=== PATIENT | female | born 1980 | race American Indian/Alaskan Native ===

== ENCOUNTER 2017-03-03 18:41 | Emergency (ER) | payer MEDICAID ==
[2017-03-03] MEDS ORDERED: ZESTRIL ONE (19:45)
[2017-03-03] MEDS ORDERED: ZESTRIL PO ONE (19:45)
--- NOTE | 2017-03-03 22:02 | Emergency Department Report ---
HPI - General Chief Complaint: Back Pain/Injury Time Seen by Provider: 03/03/17 21:47 - HPI HPI: Patient is a 37-year-old female with a history of hypertension states she is round out of her meds for about a year due to insurance issues. Patient states she used to take lisinopril 20 mg per day. Patient is here complaining of lower back pain for the past 3 weeks. Patient states pain is intermittent, throbbing, aching, 6 out of 10 intensity nature. 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 He states earlier today she did experience some generalized, throbbing type, aching headache. Denies fevers/chills/nausea/vomiting/abdominal pain/chest pains or shortness of breath/dizziness/blurry vision. ED Past Medical Hx - Past Medical History Hx Hypertension: Yes Additional medical history: PCOS - Surgical History Hx Cholecystectomy: Yes Additional Surgical History: tonsillectomy. tubal ligation - Social History Smoking Status: Former Smoker Substance Use Type: None - Medications Home Medications: Home Medications Medication Instructions Recorded Confirmed Last Taken Type Hydrochlorothiazide 25 mg PO QDAY 09/20/13 09/20/13 09/20/13 10:00 History Ibuprofen [Motrin] 800 mg PO Q8H PRN 09/20/13 09/20/13 09/17/13 08:00 History Lisinopril/Hydrochlorothiazide 1 each PO QDAY #30 tablet 09/20/13 Unknown Rx [Zestoretic 20-25 mg] medroxyPROGESTERone ACETATE 2.5 mg PO QDAY 09/20/13 09/20/13 09/17/13 08:00 History [Provera] traMADol [Ultram 50 MG tab] 50 mg PO Q6H PRN #12 tablet 09/20/13 Unknown Rx Famotidine [Pepcid] 20 mg PO BID #60 tablet 09/23/13 Unknown Rx Hyoscyamine Subl [Levsin Sl] 0.125 mg PO Q6HR PRN #20 tablet 09/23/13 Unknown Rx Promethazine [Phenergan] 25 mg PO Q6H PRN #20 tablet 09/23/13 Unknown Rx Sulfamethoxazole/Trimethoprim 1 each PO BID #14 tablet 09/23/13 Unknown Rx [Bactrim Ds] HYDROcodone/APAP 10-325 [[place] 1 each PO Q6HR PRN #20 tablet 04/02/14 Unknown Rx 10-325 mg TAB] Methocarbamol [Robaxin] 750 mg PO Q8H PRN #21 tablet 04/02/14 Unknown Rx Sulfamethoxazole/Trimethoprim 1 each PO BID #14 tablet 07/01/15 Unknown Rx [Bactrim DS TAB] Fluconazole [Diflucan TAB] 150 mg PO ONCE #1 tablet 07/10/15 Unknown Rx predniSONE [Deltasone] 20 mg PO QDAY #3 tab 07/10/15 Unknown Rx Famotidine [Pepcid] 20 mg PO BID #20 tablet 07/17/15 Unknown Rx Loratadine [Claritin] 10 mg PO DAILY #30 tablet 07/17/15 Unknown Rx Prednisone [predniSONE 10 mg 10 mg PO .TAPER #1 tab.ds.pk 07/17/15 Unknown Rx (6-Day Pack, 21 Tabs)] hydrOXYzine HCL [Atarax] 25 mg PO Q6HR PRN #30 tablet 07/17/15 Unknown Rx Ciprofloxacin HCl [Ciprofloxacin 500 mg PO Q12H #6 tab 03/03/17 Unknown Rx TAB] Cyclobenzaprine [Flexeril] 10 mg PO QHS PRN #24 tablet 03/03/17 Unknown Rx Lisinopril/Hydrochlorothiazide 1 tab PO QDAY #40 tab 03/03/17 Unknown Rx [Zestoretic 20-12.5 mg] Naproxen [Naprosyn] 500 mg PO BID #30 tablet 03/03/17 Unknown Rx ED Review of Systems ROS: Stated complaint: BACK PAIN Other details as noted in HPI Constitutional: denies: chills, fever Eyes: denies: eye pain, eye discharge, vision change ENT: denies: ear pain, throat pain Respiratory: denies: cough, shortness of breath, wheezing Cardiovascular: denies: chest pain, palpitations Endocrine: no symptoms reported Gastrointestinal: denies: abdominal pain, nausea, vomiting, diarrhea, constipation Genitourinary: denies: urgency, dysuria, frequency, hematuria, discharge Musculoskeletal: denies: back pain, joint swelling, arthralgia Skin: denies: rash, lesions Neurological: denies: headache, weakness, paresthesias Psychiatric: denies: anxiety, depression Hematological/Lymphatic: denies: easy bleeding, easy bruising Physical Exam - Physical Exam Vital Signs: Vital Signs 03/03/17 19:49 Temperature 98.7 F Pulse Rate 98 H Respiratory 20 Rate Blood Pressure 195/96 O2 Sat by Pulse 100 Oximetry Physical Exam: GENERAL: Alert and oriented x3, no apparent distress, Normal Gait, atraumatic. HEAD: Head is normocephalic and a-traumatic. EYES: Extra ocular muscles are intact. Pupils are equal, round, and reactive to light and accommodation. MOUTH:Mouth is well hydrated and without lesions. Tonsils nonerythematous or swollen, Uvula midline, Tongue not elevated. Mucous membranes are moist. Posterior pharynx clear, no exudate or lesions. Patent airways. NECK: Supple. Non edematous, No carotid bruits. No lymphadenopathy or thyromegaly. No C-spine tenderness LUNGS: Symetrical with respiration, No wheezing, no rales or crackles, CTAB. HEART: S1, S2 present, regular rate and rhythm without murmur, no rubs, no gallops. Non tender to palpation ABDOMEN: No organomegaly was noted,Positive bowel sounds, soft, and non- distended. . Nontender to palpation on all Quadrants, bilat CVA tenderness. NEUROLOGIC: The patient is cooperative with no focal neurologic deficits. Cranial nerves II through XII are grossly intact. Normal speech. SKIN: Warm and dry, No lesions, No ulceration or induration present. ED Course Vital Signs 03/03/17 19:49 Temperature 98.7 F Pulse Rate 98 H Respiratory 20 Rate Blood Pressure 195/96 O2 Sat by Pulse 100 Oximetry ED Medical Decision Making - Lab Data Result diagrams: 03/03/17 22:18 03/03/17 22:18 - Medical Decision Making 37-year-old female presents with uncontrolled hypertension/UTI/myalgia ED course: CBC, CMP, urinalysis, urine tests ordered. All labs within normal limits otherwise urinalysis shows mild urinary tract infection Discussed this results with the patient. Discussed the patient follow up with her primary care physician for blood pressure control. Discussed the patient rest and appropriate lifting techniques and braces for work Patient is a alert and oriented 3 she understands instructions given since she will follow-up. She has received her lisinopril dose as well as Compazine to help with the headache. Patient states she feels much better. His tones are normal,she is in no acute distress Critical care attestation.: If time is entered above; I have spent that time in minutes in the direct care of this critically ill patient, excluding procedure time. ED Disposition Clinical Impression: Strain of muscle, fascia and tendon of lower back, initial encounter, Uncontrolled hypertension UTI (urinary tract infection) Qualifiers: Urinary tract infection type: acute cystitis Hematuria presence: without hematuria Qualified Code(s): N30.00 - Acute cystitis without hematuria Disposition: TO HOME OR SELFCARE Is pt being admited?: No Does the pt Need Aspirin: No Condition: Stable Instructions: Muscle Strain (ED), Urinary Tract Infection in Women (ED), Chronic Hypertension (ED), Trigger Point Pain (ED), Musculoskeletal Pain (ED), Hypertension (ED) Prescriptions: Cyclobenzaprine [Flexeril] 10 mg PO QHS PRN #24 tablet PRN Reason: Muscle Spasm Ciprofloxacin HCl [Ciprofloxacin TAB] 500 mg PO Q12H #6 tab Lisinopril/Hydrochlorothiazide [Zestoretic 20-12.5 mg] 1 tab PO QDAY #40 tab Naproxen [Naprosyn] 500 mg PO BID #30 tablet Referrals: JESSIKA LEE MD [Primary Care Provider] - 3-5 Days Forms: Work/School Release Form(ED) Time of Disposition: 23:08
[2017-03-03] MEDS ORDERED: COMPAZINE PO ONE (22:04)
[2017-03-03] MEDS ORDERED: FLEXERIL PO ONE (22:05)
[2017-03-03 22:23] LABS: Bilirubin,Urine NEG (Negative); Blood,Urine LG (Negative); Ketones,Urine TR mg/dL (Negative); Leukocyte Esterase,Urine TR (Negative); Mucus,Urine 3+ /HPF; Nitrite,Urine NEG (Negative); Urobilinogen,Urine < 2.0 mg/dL (<2.0)
[2017-03-03 22:37] LABS: Basophils % (Auto) 0.4 % (0.0-1.8); Eosinophils % (Auto) 1.2 % (0.0-4.3); Hematocrit 34.9 % (30.3-42.9); Hemoglobin 10.8 gm/dl (10.1-14.3); Mean Corpuscular HGB Conc 31 % (30-34); Mean Corpuscular Volume 78 fl (79-97); Platelet Count 273 K/mm3 (140-440); Red Blood Count 4.45 M/mm3 (3.65-5.03); Red Cell Distribution Width 15.5 % (13.2-15.2); White Blood Count 5.6 K/mm3 (4.5-11.0)
[2017-03-03 22:38] LABS: Mean Corpuscular Hemoglobin 24 pg (28-32)
[2017-03-03 22:53] LABS: Alanine Aminotransferase 19 units/L (7-56); Albumin 4.2 g/dL (3.9-5); Albumin/Globulin Ratio 1.4 %; Alkaline Phosphatase 75 units/L (35-129); BUN/Creatinine Ratio 12.22; Blood Urea Nitrogen 11 mg/dL (7-17); Calcium 9.1 mg/dL (8.4-10.2); Carbon Dioxide 22 mmol/L (22-30); Glucose 85 mg/dL (65-100); Total Protein 7.2 g/dL (6.3-8.2)
[2017-03-03 22:54] LABS: Anion Gap 20 mmol/L; Chloride 101.3 mmol/L (98-107); Potassium 3.8 mmol/L (3.6-5.0); Sodium 139 mmol/L (137-145)
[2017-03-03 23:16] VITALS: BP 124/84
== END 2017-03-03 23:38 | disposition home or self-care (01) ==
LOC: ED 18:41
DX: S39.012A Strain of muscle, fascia and tendon of lower back, initial encounter (principal); I10 Essential (primary) hypertension; N30.00 Acute cystitis without hematuria; E28.2 Polycystic ovarian syndrome; Z88.8 Allergy status to other drugs, medicaments and biological substances; Z88.2 Allergy status to sulfonamides; Z87.891 Personal history of nicotine dependence; X50.1XXA Overexertion from prolonged static or awkward postures, initial encounter; Y93.89 Activity, other specified; Y99.8 Other external cause status; Y92.89 Other specified places as the place of occurrence of the external cause
CPT/HCPCS: 36415; 80053; 81001; 81025; 84703; 85025; 99283; Q0164

== ENCOUNTER 2017-03-06 13:15 | Emergency (ER) | payer MEDICAID ==
[2017-03-06 13:28] VITALS: BP 125/64
[2017-03-06] MEDS ORDERED: TORADOL IM ONE (14:35)
--- NOTE | 2017-03-06 14:40 | Emergency Department Report ---
ED Back Pain/Injury HPI - General Chief Complaint: Back Pain/Injury Stated Complaint: BACK PAIN/BODY ACHES Time Seen by Provider: 03/06/17 14:06 Source: patient Limitations: No Limitations - History of Present Illness Complaint: back pain Onset/Timin -: year(s) Similar Symptoms Previously: Yes Place: work Radiation: right leg Severity: moderate Severity scale (0 -10): 4 Quality: burning, sharp Consistency: constant Improves With: none Worsens With: movement, other (bending twisting ) Context: while lifting, turning/twisting, bending Associated Symptoms: denies: weakness, chest pain, numbness, cough, difficulty urinating, diaphoresis, incontinence, fever/chills, constipation, headaches, abdominal pain, loss of appetite, malaise, nausea/vomiting, rash, seizure, shortness of breath, syncope - Related Data Home Medications Medication Instructions Recorded Confirmed Last Taken Hydrochlorothiazide 25 mg PO QDAY 09/20/13 09/20/13 09/20/13 10:00 Ibuprofen [Motrin] 800 mg PO Q8H PRN 09/20/13 09/20/13 09/17/13 08:00 medroxyPROGESTERone ACETATE 2.5 mg PO QDAY 09/20/13 09/20/13 09/17/13 08:00 [Provera] Previous Rx's Medication Instructions Recorded Last Taken Type Lisinopril/Hydrochlorothiazide 1 each PO QDAY #30 tablet 09/20/13 Unknown Rx [Zestoretic 20-25 mg] traMADol [Ultram 50 MG tab] 50 mg PO Q6H PRN #12 tablet 09/20/13 Unknown Rx Famotidine [Pepcid] 20 mg PO BID #60 tablet 09/23/13 Unknown Rx Hyoscyamine Subl [Levsin Sl] 0.125 mg PO Q6HR PRN #20 tablet 09/23/13 Unknown Rx Promethazine [Phenergan] 25 mg PO Q6H PRN #20 tablet 09/23/13 Unknown Rx Sulfamethoxazole/Trimethoprim 1 each PO BID #14 tablet 09/23/13 Unknown Rx [Bactrim Ds] HYDROcodone/APAP 10-325 [[place] 1 each PO Q6HR PRN #20 tablet 04/02/14 Unknown Rx 10-325 mg TAB] Methocarbamol [Robaxin] 750 mg PO Q8H PRN #21 tablet 04/02/14 Unknown Rx Sulfamethoxazole/Trimethoprim 1 each PO BID #14 tablet 07/01/15 Unknown Rx [Bactrim DS TAB] Fluconazole [Diflucan TAB] 150 mg PO ONCE #1 tablet 07/10/15 Unknown Rx predniSONE [Deltasone] 20 mg PO QDAY #3 tab 07/10/15 Unknown Rx Famotidine [Pepcid] 20 mg PO BID #20 tablet 07/17/15 Unknown Rx Loratadine [Claritin] 10 mg PO DAILY #30 tablet 07/17/15 Unknown Rx Prednisone [predniSONE 10 mg 10 mg PO .TAPER #1 tab.ds.pk 07/17/15 Unknown Rx (6-Day Pack, 21 Tabs)] hydrOXYzine HCL [Atarax] 25 mg PO Q6HR PRN #30 tablet 07/17/15 Unknown Rx Ciprofloxacin HCl [Ciprofloxacin 500 mg PO Q12H #6 tab 03/03/17 Unknown Rx TAB] Cyclobenzaprine [Flexeril] 10 mg PO QHS PRN #24 tablet 03/03/17 Unknown Rx Lisinopril/Hydrochlorothiazide 1 tab PO QDAY #40 tab 03/03/17 Unknown Rx [Zestoretic 20-12.5 mg] Naproxen [Naprosyn] 500 mg PO BID #30 tablet 03/03/17 Unknown Rx Capsaicin 42.5 gm TP BID PRN #1 tube 03/06/17 Unknown Rx Allergies Allergy/AdvReac Type Severity Reaction Status Date / Time sulfamethoxazole Allergy Rash Verified 07/10/15 09:09 [From Bactrim] trimethoprim [From Bactrim] Allergy Rash Verified 07/10/15 09:09 ED Review of Systems ROS: Stated complaint: BACK PAIN/BODY ACHES Other details as noted in HPI Constitutional: denies: chills, fever Eyes: denies: eye pain, eye discharge, vision change ENT: denies: ear pain, throat pain Respiratory: denies: cough, shortness of breath, wheezing Cardiovascular: denies: chest pain, palpitations Endocrine: no symptoms reported Gastrointestinal: denies: abdominal pain, nausea, diarrhea Genitourinary: denies: urgency, dysuria, discharge Musculoskeletal: back pain, myalgia, other. denies: joint swelling, arthralgia Skin: denies: rash, lesions Neurological: denies: headache, weakness, numbness, paresthesias, confusion, abnormal gait, vertigo Psychiatric: denies: anxiety, depression Hematological/Lymphatic: denies: easy bleeding, easy bruising ED Past Medical Hx - Past Medical History Previous Medical History?: Yes Hx Hypertension: Yes Additional medical history: PCOS - Surgical History Hx Cholecystectomy: Yes Additional Surgical History: tonsillectomy. tubal ligation - Social History Smoking Status: Never Smoker Substance Use Type: None - Medications Home Medications: Home Medications Medication Instructions Recorded Confirmed Last Taken Type Hydrochlorothiazide 25 mg PO QDAY 09/20/13 09/20/13 09/20/13 10:00 History Ibuprofen [Motrin] 800 mg PO Q8H PRN 09/20/13 09/20/13 09/17/13 08:00 History Lisinopril/Hydrochlorothiazide 1 each PO QDAY #30 tablet 09/20/13 Unknown Rx [Zestoretic 20-25 mg] medroxyPROGESTERone ACETATE 2.5 mg PO QDAY 09/20/13 09/20/13 09/17/13 08:00 History [Provera] traMADol [Ultram 50 MG tab] 50 mg PO Q6H PRN #12 tablet 09/20/13 Unknown Rx Famotidine [Pepcid] 20 mg PO BID #60 tablet 09/23/13 Unknown Rx Hyoscyamine Subl [Levsin Sl] 0.125 mg PO Q6HR PRN #20 tablet 09/23/13 Unknown Rx Promethazine [Phenergan] 25 mg PO Q6H PRN #20 tablet 09/23/13 Unknown Rx Sulfamethoxazole/Trimethoprim 1 each PO BID #14 tablet 09/23/13 Unknown Rx [Bactrim Ds] HYDROcodone/APAP 10-325 [[place] 1 each PO Q6HR PRN #20 tablet 04/02/14 Unknown Rx 10-325 mg TAB] Methocarbamol [Robaxin] 750 mg PO Q8H PRN #21 tablet 04/02/14 Unknown Rx Sulfamethoxazole/Trimethoprim 1 each PO BID #14 tablet 07/01/15 Unknown Rx [Bactrim DS TAB] Fluconazole [Diflucan TAB] 150 mg PO ONCE #1 tablet 07/10/15 Unknown Rx predniSONE [Deltasone] 20 mg PO QDAY #3 tab 11/02/15 Unknown Rx Famotidine [Pepcid] 20 mg PO BID #20 tablet 07/17/15 Unknown Rx Loratadine [Claritin] 10 mg PO DAILY #30 tablet 07/17/15 Unknown Rx Prednisone [predniSONE 10 mg 10 mg PO .TAPER #1 tab.ds.pk 07/17/15 Unknown Rx (6-Day Pack, 21 Tabs)] hydrOXYzine HCL [Atarax] 25 mg PO Q6HR PRN #30 tablet 07/17/15 Unknown Rx Ciprofloxacin HCl [Ciprofloxacin 500 mg PO Q12H #6 tab 03/03/17 Unknown Rx TAB] Cyclobenzaprine [Flexeril] 10 mg PO QHS PRN #24 tablet 03/03/17 Unknown Rx Lisinopril/Hydrochlorothiazide 1 tab PO QDAY #40 tab 03/03/17 Unknown Rx [Zestoretic 20-12.5 mg] Naproxen [Naprosyn] 500 mg PO BID #30 tablet 03/03/17 Unknown Rx Capsaicin 42.5 gm TP BID PRN #1 tube 03/06/17 Unknown Rx ED Physical Exam - General Limitations: No Limitations General appearance: alert, in no apparent distress - Head Head exam: Present: atraumatic, normocephalic - Eye Eye exam: Present: normal appearance - ENT ENT exam: Present: mucous membranes moist - Neck Neck exam: Present: normal inspection - Respiratory Respiratory exam: Present: normal lung sounds bilaterally. Absent: respiratory distress - Cardiovascular Cardiovascular Exam: Present: regular rate, normal rhythm. Absent: systolic murmur, diastolic murmur, rubs, gallop - GI/Abdominal GI/Abdominal exam: Present: soft, normal bowel sounds - Rectal Rectal exam: Present: deferred - Extremities Exam Extremities exam: Present: normal inspection, full ROM. Absent: tenderness - Back Exam Back exam: Present: normal inspection, tenderness, muscle spasm. Absent: CVA tenderness (R), CVA tenderness (L), paraspinal tenderness, vertebral tenderness , rash noted - Expanded Back Exam Expanded Back exam: Present: intact bulbocavernosus reflex. Absent: saddle anesthesia Back exam: Sciatic Notch Tenderness: Right, Positive Straight Leg Raise: Right, Negative Straight Leg Raising: Left - Neurological Exam Neurological exam: Present: alert, oriented X3, CN II-XII intact, normal gait, reflexes normal. Absent: motor sensory deficit - Expanded Neurological Exam Expanded Speech: Present: fluid speech Cerebellar function: Finger to Nose: Normal, Heel to Deras: Normal, Romberg: Normal Upper motor neuron: Prabhakar Neglect: Normal, Pronator Drift: Normal, Babinski Sign : Normal, Sensory Extinction: Normal Sensory exam: Upper Extremity Light Touch: Normal, Upper Extremity Pin Prick: Normal, Upper Extremity Temperature: Normal, UE 2 Point Discrimination: Normal, Lower Extremity Light Touch: Normal, Lower Extremity Pin Prick: Normal, Lower Extremity Temperature: Normal, LE 2 Point Discrimination: Normal Motor strength exam: RUE: 5, LUE: 5, RLE: 5 DTR: bicep (R): 2+, bicep (L): 2+, tricep (R): 2+, tricep (L): 2+, knee (R): 2+ , knee (L): 2+, ankle (R): 2+, ankle (L): 2+ Best Eye Response ([place]): (4) open spontaneously Best Motor Response ([place]): (6) obeys commands Best Verbal Response ([place]): (5) oriented [place] Total: 15 - Psychiatric Psychiatric exam: Present: normal affect, normal mood - Skin Skin exam: Present: warm, dry, intact, normal color. Absent: rash ED Course Vital Signs 03/06/17 13:24 Temperature 97.6 F Pulse Rate 102 H Respiratory 18 Rate Blood Pressure 125/64 O2 Sat by Pulse 100 Oximetry ED Medical Decision Making - Medical Decision Making pt is as 37 y/o aaf with hx chronic low back pain who present for acute exacerbation including this ed 4 days ago as "I twisted my back again at work , I have to lift and twist and it aggravates my back and I have to work" todate patient has not follow up with primary care or orthopedics for management of pain, exam: no posterior vertebral point tenderness no paraspinus muscle tenderness mild sciatic notch tenderness there is no weakness no paresthesia no numbness pos straight leg right there is no loss or decrease in bowel or bladder function pt is ambulatory gait is steady pt with nad at this time pain improved with toradol IM, will refer to orthopedic Dr. Sanches pt will follow up with same. pt verbalizled agreement and understanding with discharge plan. Critical care attestation.: If time is entered above; I have spent that time in minutes in the direct care of this critically ill patient, excluding procedure time. ED Disposition Clinical Impression: Low back strain Qualifiers: Encounter type: sequela Qualified Code(s): S39.012S - Strain of muscle, fascia and tendon of lower back, sequela Disposition: TO HOME OR SELFCARE Is pt being admited?: No Does the pt Need Aspirin: No Condition: Good Instructions: Low Back Strain (ED) Prescriptions: Capsaicin 42.5 gm TP BID PRN #1 tube PRN Reason: Pain Referrals: PRIMARY CAREMD [Primary Care Provider] - 3-5 Days LIYAH SANCHES MD [Staff Physician] - 3-5 Days Forms: Work/School Release Form(ED) Time of Disposition: 14:50
== END 2017-03-06 14:59 | disposition home or self-care (01) ==
LOC: ED 13:15
DX: S39.012S Strain of muscle, fascia and tendon of lower back, sequela (principal); I10 Essential (primary) hypertension; Z88.2 Allergy status to sulfonamides; Z88.8 Allergy status to other drugs, medicaments and biological substances; X50.1XXA Overexertion from prolonged static or awkward postures, initial encounter; Y93.89 Activity, other specified; Y99.9 Unspecified external cause status; Y92.89 Other specified places as the place of occurrence of the external cause
CPT/HCPCS: 96372; 99282; J1885

== ENCOUNTER 2017-04-15 07:46 | Emergency (ER) | payer MEDICAID, OTHER ==
[2017-04-15 07:57] VITALS: BP 160/95
[2017-04-15] MEDS ORDERED: FLEXERIL PO ONE (09:42)
[2017-04-15] MEDS ORDERED: TORADOL IM ONE (09:42)
--- NOTE | 2017-04-15 19:04 | Emergency Department Report ---
Entered by CATERINA ESPINO, acting as scribe for CB COPE PA. ED Extremity Problem HPI - General Chief complaint: Extremity Injury, Lower Stated complaint: BOTH KNEE PAIN Time Seen by Provider: 04/15/17 09:12 Source: patient Mode of arrival: Ambulatory Limitations: No Limitations - History of Present Illness Initial comments: 37 y/o female with a PMHx of HTN and PCOS presents to the ED c/o bilateral knee pain that began 2 weeks ago. Rates pain a 10/10 in severity, which she describes as shooting and stabbing in quality. Aggravated with movement and walking up/down stairs, and alleviated with immobilization, heat, and ice. Denies any bilateral knee injury/trauma, numbness, tingling, fever, chills, chest pain, SOB, nausea, vomiting, and headache. Denies radiation of pain. Took OTC medication with no relief. Notes that she walks up and down stairs throughout the day at work. Allergic to sulfamethoxazol and trimethoprim. MD Complaint: extremity pain (bilateral knee) Onset/Timin -: week(s) Location: bilateral lower extremity, knee -: Yes arthralgia (bilateral knee pain) Radiation: none Severity scale (0 -10): 10 Quality: stabbing, other (shooting) Consistency: constant Improves with: cold therapy, immobilization, rest, other (heat) Worsens with: weight bearing, walking Associated Symptoms: denies other symptoms, arthralgias (bilateral knee pain). denies: chest pain, shortness of breath, fever, myalgias, rash - Related Data Home Medications Medication Instructions Recorded Confirmed Last Taken Hydrochlorothiazide 25 mg PO QDAY 09/20/13 09/20/13 09/20/13 10:00 medroxyPROGESTERone ACETATE 2.5 mg PO QDAY 09/20/13 09/20/13 09/17/13 08:00 [Provera] Previous Rx's Medication Instructions Recorded Last Taken Type Lisinopril/Hydrochlorothiazide 1 each PO QDAY #30 tablet 09/20/13 Unknown Rx [Zestoretic 20-25 mg] traMADol [Ultram 50 MG tab] 50 mg PO Q6H PRN #12 tablet 09/20/13 Unknown Rx Famotidine [Pepcid] 20 mg PO BID #60 tablet 09/23/13 Unknown Rx Hyoscyamine Subl [Levsin Sl] 0.125 mg PO Q6HR PRN #20 tablet 09/23/13 Unknown Rx Promethazine [Phenergan] 25 mg PO Q6H PRN #20 tablet 09/23/13 Unknown Rx Sulfamethoxazole/Trimethoprim 1 each PO BID #14 tablet 09/23/13 Unknown Rx [Bactrim Ds] HYDROcodone/APAP 10-325 [[place] 1 each PO Q6HR PRN #20 tablet 04/02/14 Unknown Rx 10-325 mg TAB] Methocarbamol [Robaxin] 750 mg PO Q8H PRN #21 tablet 04/02/14 Unknown Rx Sulfamethoxazole/Trimethoprim 1 each PO BID #14 tablet 07/01/15 Unknown Rx [Bactrim DS TAB] Fluconazole [Diflucan TAB] 150 mg PO ONCE #1 tablet 07/10/15 Unknown Rx predniSONE [Deltasone] 20 mg PO QDAY #3 tab 07/10/15 Unknown Rx Famotidine [Pepcid] 20 mg PO BID #20 tablet 07/17/15 Unknown Rx Loratadine [Claritin] 10 mg PO DAILY #30 tablet 07/17/15 Unknown Rx Prednisone [predniSONE 10 mg 10 mg PO .TAPER #1 tab.ds.pk 07/17/15 Unknown Rx (6-Day Pack, 21 Tabs)] hydrOXYzine HCL [Atarax] 25 mg PO Q6HR PRN #30 tablet 07/17/15 Unknown Rx Ciprofloxacin HCl [Ciprofloxacin 500 mg PO Q12H #6 tab 03/03/17 Unknown Rx TAB] Lisinopril/Hydrochlorothiazide 1 tab PO QDAY #40 tab 03/03/17 Unknown Rx [Zestoretic 20-12.5 mg] Naproxen [Naprosyn] 500 mg PO BID #30 tablet 03/03/17 Unknown Rx Capsaicin 42.5 gm TP BID PRN #1 tube 03/06/17 Unknown Rx Cyclobenzaprine [Flexeril 10 MG 10 mg PO QHS PRN #24 tablet 04/15/17 Unknown Rx TAB] Ibuprofen [Motrin 800 MG tab] 800 mg PO Q8H PRN #30 tablet 04/15/17 Unknown Rx Allergies Allergy/AdvReac Type Severity Reaction Status Date / Time sulfamethoxazole Allergy Rash Verified 07/10/15 09:09 [From Bactrim] trimethoprim [From Bactrim] Allergy Rash Verified 07/10/15 09:09 ED Review of Systems ROS: Stated complaint: BOTH KNEE PAIN Other details as noted in HPI Comment: All other systems reviewed and negative Constitutional: denies: chills, diaphoresis, fever, weakness Eyes: denies: eye pain, eye discharge, vision change ENT: denies: ear pain, throat pain Respiratory: denies: cough, orthopnea, shortness of breath, SOB with exertion, SOB at rest, stridor, wheezing Cardiovascular: denies: chest pain, palpitations, dyspnea on exertion, orthopnea , edema, syncope, paroxysmal nocturnal dyspnea Endocrine: no symptoms reported Gastrointestinal: denies: abdominal pain, nausea, vomiting, diarrhea Musculoskeletal: arthralgia (bilateral knee pain). denies: back pain, joint swelling Skin: denies: rash, lesions Neurological: denies: headache, weakness, numbness, paresthesias Psychiatric: denies: anxiety, depression Hematological/Lymphatic: denies: easy bleeding, easy bruising ED Past Medical Hx - Past Medical History Previous Medical History?: Yes Hx Hypertension: Yes Additional medical history: PCOS - Surgical History Past Surgical History?: Yes Hx Cholecystectomy: Yes Additional Surgical History: tonsillectomy. tubal ligation - Family History Family history: no significant - Social History Smoking Status: Former Smoker Substance Use Type: Non Opiate Pain, Prescribed - Medications Home Medications: Home Medications Medication Instructions Recorded Confirmed Last Taken Type Hydrochlorothiazide 25 mg PO QDAY 09/20/13 09/20/13 09/20/13 10:00 History Lisinopril/Hydrochlorothiazide 1 each PO QDAY #30 tablet 09/20/13 Unknown Rx [Zestoretic 20-25 mg] medroxyPROGESTERone ACETATE 2.5 mg PO QDAY 09/20/13 09/20/13 09/17/13 08:00 History [Provera] traMADol [Ultram 50 MG tab] 50 mg PO Q6H PRN #12 tablet 09/20/13 Unknown Rx Famotidine [Pepcid] 20 mg PO BID #60 tablet 09/23/13 Unknown Rx Hyoscyamine Subl [Levsin Sl] 0.125 mg PO Q6HR PRN #20 tablet 09/23/13 Unknown Rx Promethazine [Phenergan] 25 mg PO Q6H PRN #20 tablet 09/23/13 Unknown Rx Sulfamethoxazole/Trimethoprim 1 each PO BID #14 tablet 09/23/13 Unknown Rx [Bactrim Ds] HYDROcodone/APAP 10-325 [[place] 1 each PO Q6HR PRN #20 tablet 04/02/14 Unknown Rx 10-325 mg TAB] Methocarbamol [Robaxin] 750 mg PO Q8H PRN #21 tablet 04/02/14 Unknown Rx Sulfamethoxazole/Trimethoprim 1 each PO BID #14 tablet 07/01/15 Unknown Rx [Bactrim DS TAB] Fluconazole [Diflucan TAB] 150 mg PO ONCE #1 tablet 07/10/15 Unknown Rx predniSONE [Deltasone] 20 mg PO QDAY #3 tab 07/10/15 Unknown Rx Famotidine [Pepcid] 20 mg PO BID #20 tablet 07/17/15 Unknown Rx Loratadine [Claritin] 10 mg PO DAILY #30 tablet 07/17/15 Unknown Rx Prednisone [predniSONE 10 mg 10 mg PO .TAPER #1 tab.ds.pk 07/17/15 Unknown Rx (6-Day Pack, 21 Tabs)] hydrOXYzine HCL [Atarax] 25 mg PO Q6HR PRN #30 tablet 07/17/15 Unknown Rx Ciprofloxacin HCl [Ciprofloxacin 500 mg PO Q12H #6 tab 03/03/17 Unknown Rx TAB] Lisinopril/Hydrochlorothiazide 1 tab PO QDAY #40 tab 03/03/17 Unknown Rx [Zestoretic 20-12.5 mg] Naproxen [Naprosyn] 500 mg PO BID #30 tablet 03/03/17 Unknown Rx Capsaicin 42.5 gm TP BID PRN #1 tube 03/06/17 Unknown Rx Cyclobenzaprine [Flexeril 10 MG 10 mg PO QHS PRN #24 tablet 04/15/17 Unknown Rx TAB] Ibuprofen [Motrin 800 MG tab] 800 mg PO Q8H PRN #30 tablet 04/15/17 Unknown Rx ED Physical Exam - General Limitations: No Limitations General appearance: alert, in no apparent distress - Head Head exam: Present: atraumatic, normocephalic - Eye Eye exam: Present: normal appearance, PERRL, EOMI Pupils: Present: normal accommodation - ENT ENT exam: Present: normal exam, mucous membranes moist, normal external ear exam - Neck Neck exam: Present: normal inspection, full ROM. Absent: tenderness, meningismus, lymphadenopathy - Respiratory Respiratory exam: Present: normal lung sounds bilaterally. Absent: respiratory distress, wheezes, rales, rhonchi, stridor, chest wall tenderness, accessory muscle use, decreased breath sounds, prolonged expiratory - Cardiovascular Cardiovascular Exam: Present: regular rate, normal rhythm, normal heart sounds. Absent: systolic murmur, diastolic murmur, rubs, gallop - GI/Abdominal GI/Abdominal exam: Present: soft, normal bowel sounds. Absent: distended - Extremities Exam Extremities exam: Present: normal inspection, full ROM, normal capillary refill. Absent: tenderness, pedal edema, joint swelling, calf tenderness - Expanded Lower Extremity Exam Left Hip exam: Present: normal inspection (bilaterally), full ROM, external rotation , internal rotation, pelvic stability. Absent: tenderness, swelling, abrasion, laceration, ecchymosis, deformity, crepidus, dislocation, erythema, shortening Upper Leg exam: Present: normal inspection (bilaterally), full ROM. Absent: tenderness, swelling, laceration, ecchymosis, deformity, crepidus, dislocation, erythema Knee exam: Present: normal inspection (bilaterally), full ROM, full knee extension. Absent: tenderness, swelling, abrasion, laceration, ecchymosis, deformity, crepidus, dislocation, erythema, effusion, pain w/ pronation/ supination, posterior draw sign, pain/laxity with valgus, pain/laxity with varus Lower Leg exam: Present: normal inspection (bilaterally), full ROM. Absent: tenderness, swelling, abrasion, laceration, ecchymosis, deformity, crepidus, dislocation, erythema, palpable cord, Vinay's sign Ankle exam: Present: normal inspection (bilaterally), full ROM. Absent: tenderness, swelling, abrasion, laceration, ecchymosis, deformity, crepidus, dislocation, erythema, anterior draw sign Foot/Toe exam: Present: normal inspection (bilaterally), full ROM Neuro vascular tendon exam: Present: no vascular compromise. Absent: pulse deficit, abnormal cap refill, motor deficit, sensory deficit, tendon deficit, extremity cold to touch, pallor, abnormal 2-point discrimination, decreased fine /light touch, foot drop, peroneal nerve deficit, significant pain with passive ROM of distal joint Gait: Positive: observed and normal - Back Exam Back exam: Present: normal inspection, full ROM. Absent: tenderness, CVA tenderness (R), CVA tenderness (L), muscle spasm, paraspinal tenderness, vertebral tenderness, rash noted - Neurological Exam Neurological exam: Present: alert, oriented X3, normal gait - Psychiatric Psychiatric exam: Present: normal affect, normal mood - Skin Skin exam: Present: warm, dry, intact. Absent: rash ED Course Vital Signs 04/15/17 07:52 Temperature 98 F Pulse Rate 107 H Respiratory 18 Rate Blood Pressure 160/95 O2 Sat by Pulse 96 Oximetry ED Medical Decision Making - Medical Decision Making 37 [id number] presents with bilateral knee pain ED Course: Patient received 1 dose of Flexeril and 1 dose of Toradol. Vital signs stable patient is in no acute or respiratory distress. Discussed findings with patient about diagnoses. Discussed treatment in ED with patient Discussed with patient to take prescribed Flexeril and Motrin for pain. Discussed with patient to stretch knee with suggested exercises, rest, and apply heat/ice to knees. Discussed with patient to only take medication while she's at home and before bed, not while driving. Discussed with patient to follow up with PCP as referred, and to return to the ED if symptoms return or worsen. Patient states understanding and will follow instructions. Pt verbally states understanding and will comply to follow up. Critical care attestation.: If time is entered above; I have spent that time in minutes in the direct care of this critically ill patient, excluding procedure time. ED Disposition Clinical Impression: Arthralgia of both knees Is pt being admited?: No Does the pt Need Aspirin: No Condition: Stable Instructions: Knee Pain (ED), Arthralgia (ED), Knee Exercises (GEN) Additional Instructions: Taken medication as prescribed Full instructions as discussed If symptoms worsen return to ED Prescriptions: Cyclobenzaprine [Flexeril 10 MG TAB] 10 mg PO QHS PRN #24 tablet PRN Reason: Muscle Spasm Ibuprofen [Motrin 800 MG tab] 800 mg PO Q8H PRN #30 tablet PRN Reason: Pain Referrals: PRIMARY CARE, [Primary Care Provider] - 3-5 Days [facility] [Outside] - 3-5 Days [facility] [Outside] - 3-5 Days [facility] [Outside] - 3-5 Days Forms: Work/School Release Form(ED) Time of Disposition: 09:44 This documentation as recorded by the KENZIE veloz JASMINE,accurately reflects the service I personally performed and the decisions made by ,CB COPE PA.
== END 2017-04-15 09:59 | disposition home or self-care (01) ==
LOC: ED 07:46
DX: M25.562 Pain in left knee (principal); M25.561 Pain in right knee; I10 Essential (primary) hypertension; Z88.1 Allergy status to other antibiotic agents; Z88.2 Allergy status to sulfonamides; Z87.891 Personal history of nicotine dependence
CPT/HCPCS: 96372; 99282; J1885

== ENCOUNTER 2018-03-06 09:43 | Emergency (ER) | payer MEDICAID, OTHER ==
[2018-03-06 13:07] LABS: HCG Qualitative,Urine Negative (Negative)
[2018-03-06 13:11] LABS: Bilirubin,Urine NEG (Negative); Blood,Urine NEG (Negative); Color,Urine Yellow (Yellow); Mucus,Urine 3+ /HPF; Protein,Urine <15 mg/dL mg/dL (Negative)
--- NOTE | 2018-03-06 13:48 | Emergency Department Report ---
ED Abdominal Pain HPI - General Chief Complaint: Nausea/Vomiting/Diarrhea Stated Complaint: NAUSEA/DIARRHEA Time Seen by Provider: 03/06/18 10:23 Source: patient Mode of arrival: Ambulatory Limitations: No Limitations - History of Present Illness Initial Comments: Patient is a 38-year-old female who is presenting with 1 week of nausea vomiting and diarrhea. Patient states some generalized abdominal discomfort. She states she has been no fevers chills, hematemesis or hematochezia at this time. Patient states that she has crampy uncomfortable feeling that is not 10 at its worse. Patient also has a history of hypertension is been off of her meds for several days. - Related Data Home Medications Medication Instructions Recorded Confirmed Last Taken Hydrochlorothiazide 25 mg PO QDAY 09/20/13 09/20/13 09/20/13 10:00 medroxyPROGESTERone ACETATE(NF 2.5 mg PO QDAY 09/20/13 09/20/13 09/17/13 08:00 [Provera] Previous Rx's Medication Instructions Recorded Last Taken Type Lisinopril/Hydrochlorothiazide 1 each PO QDAY #30 tablet 09/20/13 Unknown Rx [Zestoretic 20-25 mg] traMADol [Ultram 50 MG tab] 50 mg PO Q6H PRN #12 tablet 09/20/13 Unknown Rx Famotidine [Pepcid] 20 mg PO BID #60 tablet 09/23/13 Unknown Rx Hyoscyamine Subl [Levsin Sl] 0.125 mg PO Q6HR PRN #20 tablet 09/23/13 Unknown Rx Promethazine [Phenergan] 25 mg PO Q6H PRN #20 tablet 09/23/13 Unknown Rx Sulfamethoxazole/Trimethoprim 1 each PO BID #14 tablet 09/23/13 Unknown Rx [Bactrim Ds] HYDROcodone/APAP 10-325 [[place] 1 each PO Q6HR PRN #20 tablet 04/02/14 Unknown Rx 10-325 mg TAB] Methocarbamol [Robaxin] 750 mg PO Q8H PRN #21 tablet 04/02/14 Unknown Rx Sulfamethoxazole/Trimethoprim 1 each PO BID #14 tablet 07/01/15 Unknown Rx [Bactrim DS TAB] Fluconazole [Diflucan TAB] 150 mg PO ONCE #1 tablet 07/10/15 Unknown Rx predniSONE [Deltasone] 20 mg PO QDAY #3 tab 07/10/15 Unknown Rx Famotidine [Pepcid] 20 mg PO BID #20 tablet 07/17/15 Unknown Rx Loratadine [Claritin] 10 mg PO DAILY #30 tablet 07/17/15 Unknown Rx Prednisone [predniSONE 10 mg 10 mg PO .TAPER #1 tab.ds.pk 07/17/15 Unknown Rx (6-Day Pack, 21 Tabs)] hydrOXYzine HCL [Atarax] 25 mg PO Q6HR PRN #30 tablet 07/17/15 Unknown Rx Ciprofloxacin HCl [Ciprofloxacin 500 mg PO Q12H #6 tab 03/03/17 Unknown Rx TAB] Naproxen [Naprosyn] 500 mg PO BID #30 tablet 03/03/17 Unknown Rx Capsaicin 42.5 gm TP BID PRN #1 tube 03/06/17 Unknown Rx Cyclobenzaprine [Flexeril 10 MG 10 mg PO QHS PRN #24 tablet 04/15/17 Unknown Rx TAB] Ibuprofen [Motrin 800 MG tab] 800 mg PO Q8H PRN #30 tablet 04/15/17 Unknown Rx Ciprofloxacin HCl [Cipro] 500 mg PO BID #14 tablet 03/06/18 Unknown Rx Dicyclomine [Bentyl] 10 mg PO QID #15 capsule 03/06/18 Unknown Rx Docusate Sodium [Colace] 100 mg PO BID #30 capsule 03/06/18 Unknown Rx Lisinopril/Hydrochlorothiazide 1 tab PO QDAY #30 tab 03/06/18 Unknown Rx [Zestoretic 20-12.5 mg] metroNIDAZOLE [Flagyl] 500 mg PO Q12HR #14 tab 03/06/18 Unknown Rx Allergies Allergy/AdvReac Type Severity Reaction Status Date / Time sulfamethoxazole Allergy Rash Verified 07/10/15 09:09 [From Bactrim] trimethoprim [From Bactrim] Allergy Rash Verified 07/10/15 09:09 ED Review of Systems ROS: Stated complaint: NAUSEA/DIARRHEA Other details as noted in HPI Comment: All other systems reviewed and negative ED Past Medical Hx - Past Medical History Previous Medical History?: Yes Hx Hypertension: Yes Additional medical history: PCOS - Surgical History Past Surgical History?: Yes Hx Cholecystectomy: Yes Additional Surgical History: tonsillectomy. tubal ligation - Social History Smoking Status: Former Smoker Substance Use Type: Non Opiate Pain - Medications Home Medications: Home Medications Medication Instructions Recorded Confirmed Last Taken Type Hydrochlorothiazide 25 mg PO QDAY 09/20/13 09/20/13 09/20/13 10:00 History Lisinopril/Hydrochlorothiazide 1 each PO QDAY #30 tablet 09/20/13 Unknown Rx [Zestoretic 20-25 mg] medroxyPROGESTERone ACETATE(NF 2.5 mg PO QDAY 09/20/13 09/20/13 09/17/13 08:00 History [Provera] traMADol [Ultram 50 MG tab] 50 mg PO Q6H PRN #12 tablet 09/20/13 Unknown Rx Famotidine [Pepcid] 20 mg PO BID #60 tablet 09/23/13 Unknown Rx Hyoscyamine Subl [Levsin Sl] 0.125 mg PO Q6HR PRN #20 tablet 09/23/13 Unknown Rx Promethazine [Phenergan] 25 mg PO Q6H PRN #20 tablet 09/23/13 Unknown Rx Sulfamethoxazole/Trimethoprim 1 each PO BID #14 tablet 09/23/13 Unknown Rx [Bactrim Ds] HYDROcodone/APAP 10-325 [[place] 1 each PO Q6HR PRN #20 tablet 04/02/14 Unknown Rx 10-325 mg TAB] Methocarbamol [Robaxin] 750 mg PO Q8H PRN #21 tablet 04/02/14 Unknown Rx Sulfamethoxazole/Trimethoprim 1 each PO BID #14 tablet 07/01/15 Unknown Rx [Bactrim DS TAB] Fluconazole [Diflucan TAB] 150 mg PO ONCE #1 tablet 07/10/15 Unknown Rx predniSONE [Deltasone] 20 mg PO QDAY #3 tab 07/10/15 Unknown Rx Famotidine [Pepcid] 20 mg PO BID #20 tablet 07/17/15 Unknown Rx Loratadine [Claritin] 10 mg PO DAILY #30 tablet 07/17/15 Unknown Rx Prednisone [predniSONE 10 mg 10 mg PO .TAPER #1 tab.ds.pk 07/17/15 Unknown Rx (6-Day Pack, 21 Tabs)] hydrOXYzine HCL [Atarax] 25 mg PO Q6HR PRN #30 tablet 07/17/15 Unknown Rx Ciprofloxacin HCl [Ciprofloxacin 500 mg PO Q12H #6 tab 03/03/17 Unknown Rx TAB] Naproxen [Naprosyn] 500 mg PO BID #30 tablet 03/03/17 Unknown Rx Capsaicin 42.5 gm TP BID PRN #1 tube 03/06/17 Unknown Rx Cyclobenzaprine [Flexeril 10 MG 10 mg PO QHS PRN #24 tablet 04/15/17 Unknown Rx TAB] Ibuprofen [Motrin 800 MG tab] 800 mg PO Q8H PRN #30 tablet 04/15/17 Unknown Rx Ciprofloxacin HCl [Cipro] 500 mg PO BID #14 tablet 03/06/18 Unknown Rx Dicyclomine [Bentyl] 10 mg PO QID #15 capsule 03/06/18 Unknown Rx Docusate Sodium [Colace] 100 mg PO BID #30 capsule 03/06/18 Unknown Rx Lisinopril/Hydrochlorothiazide 1 tab PO QDAY #30 tab 03/06/18 Unknown Rx [Zestoretic 20-12.5 mg] metroNIDAZOLE [Flagyl] 500 mg PO Q12HR #14 tab 03/06/18 Unknown Rx ED Physical Exam - General Limitations: No Limitations General appearance: alert, in no apparent distress - Head Head exam: Present: atraumatic, normocephalic - Eye Eye exam: Present: normal appearance - ENT ENT exam: Present: mucous membranes moist - Neck Neck exam: Present: normal inspection - Respiratory Respiratory exam: Present: normal lung sounds bilaterally. Absent: respiratory distress, wheezes, rales, rhonchi - Cardiovascular Cardiovascular Exam: Present: regular rate, normal rhythm. Absent: systolic murmur, diastolic murmur, rubs, gallop - GI/Abdominal GI/Abdominal exam: Present: soft, normal bowel sounds. Absent: distended, tenderness, guarding, rebound - Extremities Exam Extremities exam: Present: normal inspection - Back Exam Back exam: Present: normal inspection - Neurological Exam Neurological exam: Present: alert, oriented X3 - Psychiatric Psychiatric exam: Present: normal affect, normal mood - Skin Skin exam: Present: warm, dry, intact, normal color. Absent: rash ED Course Vital Signs 03/06/18 09:48 Temperature 98.2 F Pulse Rate 99 H Respiratory 18 Rate Blood Pressure 163/102 O2 Sat by Pulse 99 Oximetry ED Medical Decision Making - Lab Data Lab Results 03/06/18 Range/Units 11:47 Urine Color Yellow (Yellow) Urine Turbidity Clear (Clear) Urine pH 5.0 (5.0-7.0) Ur Specific [place] 1.026 (1.003-1.030) Urine Protein <15 mg/dl (Negative) mg/dL Urine Glucose (UA) Neg (Negative) mg/dL Urine Ketones Neg (Negative) mg/dL Urine Blood Neg (Negative) Urine Nitrite Neg (Negative) Ur Reducing Substances Not Reportable Urine Bilirubin Neg (Negative) Urine Ictotest Not Reportable Urine Urobilinogen 2.0 (<2.0) mg/dL Ur Leukocyte Esterase Tr (Negative) Urine WBC (Auto) 2.0 (0.0-6.0) /HPF Urine RBC (Auto) 2.0 (0.0-6.0) /HPF U Epithel Cells (Auto) 28.0 H (0-13.0) /HPF Urine Mucus 3+ /HPF Urine HCG, Qual Negative (Negative) - Radiology Data interpreted by me: Patient has a nonobstructive bowel gas pattern except for a loop of distended colon in the left lower quadrant. There is stool and air in the colon however. - Medical Decision Making Patient states she has had some chest minor chills and does have what appears to be a pattern consistent with enteritis on her x-ray. Patient was started on Cipro Flagyl as well as meds for symptomatic relief will be discharged home. Critical care attestation.: If time is entered above; I have spent that time in minutes in the direct care of this critically ill patient, excluding procedure time. ED Disposition Clinical Impression: Gastroenteritis Disposition: DC-01 TO HOME OR SELFCARE Is pt being admited?: No Does the pt Need Aspirin: No Condition: Stable Instructions: Gastroenteritis (ED) Prescriptions: Ciprofloxacin HCl [Cipro] 500 mg PO BID #14 tablet Dicyclomine [Bentyl] 10 mg PO QID #15 capsule Docusate Sodium [Colace] 100 mg PO BID #30 capsule Lisinopril/Hydrochlorothiazide [Zestoretic 20-12.5 mg] 1 tab PO QDAY #30 tab metroNIDAZOLE [Flagyl] 500 mg PO Q12HR #14 tab Referrals: PRIMARY CARE, [Primary Care Provider] - 3-5 Days
[2018-03-06 13:55] VITALS: BP 156/72
--- NOTE | 2018-03-06 15:44 | XRay Report ---
Abdominal series: Diarrhea. AP view of the chest demonstrates a dextroscoliosis. Supine view the abdomen demonstrates a corresponding levoscoliosis. The chest is otherwise unremarkable. There is a generally unremarkable abdominal gas pattern with only minimal gaseous dilatation of colon loop in the left midabdomen. No free air no soft tissue mass noted. Cholecystectomy clips are present as well as bilateral fallopian tube stents. Impression: No acute pathology identified.
== END 2018-03-06 13:53 | disposition home or self-care (01) ==
LOC: ED 09:43
DX: K52.9 Noninfective gastroenteritis and colitis, unspecified (principal); Z88.2 Allergy status to sulfonamides; I10 Essential (primary) hypertension; Z90.49 Acquired absence of other specified parts of digestive tract; Z90.89 Acquired absence of other organs; Z98.51 Tubal ligation status; Z87.891 Personal history of nicotine dependence
CPT/HCPCS: 74022; 81001; 81025; 99283

== ENCOUNTER 2018-03-12 17:08 | Emergency (ER) | payer MEDICAID ==
[2018-03-12 18:12] LABS: Basophils # (Auto) 0.1 K/mm3 (0.0-0.1); Basophils % (Auto) 0.6 % (0.0-1.8); Eosinophils % (Auto) 0.4 % (0.0-4.3); Hematocrit 36.7 % (30.3-42.9); Hemoglobin 11.7 gm/dl (10.1-14.3); Lymphocytes # (Auto) 2.3 K/mm3 (1.2-5.4); Lymphocytes % (Auto) 29.4 % (13.4-35.0); Mean Corpuscular HGB Conc 32 % (30-34); Mean Corpuscular Volume 80 fl (79-97); Monocytes # (Auto) 0.8 K/mm3 (0.0-0.8); Platelet Count 347 K/mm3 (140-440); Red Blood Count 4.57 M/mm3 (3.65-5.03); Red Cell Distribution Width 13.9 % (13.2-15.2)
[2018-03-12 18:17] LABS: Alanine Aminotransferase 21 units/L (7-56); Albumin 4.3 g/dL (3.9-5); BUN/Creatinine Ratio 12; Blood Urea Nitrogen 12 mg/dL (7-17); Calcium 9.5 mg/dL (8.4-10.2); Hemolysis Index 7
[2018-03-12 18:19] LABS: Mean Corpuscular Hemoglobin 26 pg (28-32)
[2018-03-12] MEDS ORDERED: NACL 0.9% 1000 ML 1,000 ML IV ONE (20:12)
[2018-03-12] MEDS ORDERED: ZOFRAN IV ONE (20:13)
[2018-03-12] MEDS ORDERED: ALUM-MAG HYDROX-SIMETH 200-200-20MG/5ML PO ONE (20:13)
[2018-03-12] MEDS ORDERED: LIDOCAINE VISCOUS 2% PO ONE (20:13)
--- NOTE | 2018-03-12 21:00 | Emergency Department Report ---
HPI - General Chief Complaint: Abdominal Pain Time Seen by Provider: 03/12/18 19:59 - HPI HPI: 38-year-old female presents to the emergency department, dropped off by her to be seen, with complaint of severe upper abdominal burning sensation, diarrhea and nausea without vomiting. She was seen here at [facility] on 03/06 for the same symptoms. She had a negative x-ray at that time and was sent home with Cipro, Bentyl, Flagyl and Colace. She has been taking his medications compliantly without any relief except for the Colace may have worked to cause her to have loose stools. She has a past medical history of polycystic ovarian syndrome, uterine fibroids and has a tubal ligation and previous appendectomy. Her primary care physician is a Dr. Sabina Yoo but she has not seen them regarding her symptoms. No recent travel or sick contacts at home. ED Past Medical Hx - Past Medical History Hx Hypertension: Yes Additional medical history: PCOS, uterine fibroids - Surgical History Hx Cholecystectomy: Yes Additional Surgical History: tonsillectomy. tubal ligation - Social History Smoking Status: Current Some Day Smoker Substance Use Type: None - Medications Home Medications: Home Medications Medication Instructions Recorded Confirmed Last Taken Type Hydrochlorothiazide 25 mg PO QDAY 09/20/13 09/20/13 09/20/13 10:00 History Lisinopril/Hydrochlorothiazide 1 each PO QDAY #30 tablet 09/20/13 Unknown Rx [Zestoretic 20-25 mg] medroxyPROGESTERone ACETATE(NF 2.5 mg PO QDAY 09/20/13 09/20/13 09/17/13 08:00 History [Provera] traMADol [Ultram 50 MG tab] 50 mg PO Q6H PRN #12 tablet 09/20/13 Unknown Rx Famotidine [Pepcid] 20 mg PO BID #60 tablet 09/23/13 Unknown Rx Hyoscyamine Subl [Levsin Sl] 0.125 mg PO Q6HR PRN #20 tablet 09/23/13 Unknown Rx Promethazine [Phenergan] 25 mg PO Q6H PRN #20 tablet 09/23/13 Unknown Rx Sulfamethoxazole/Trimethoprim 1 each PO BID #14 tablet 09/23/13 Unknown Rx [Bactrim Ds] HYDROcodone/APAP 10-325 [[place] 1 each PO Q6HR PRN #20 tablet 04/02/14 Unknown Rx 10-325 mg TAB] Methocarbamol [Robaxin] 750 mg PO Q8H PRN #21 tablet 04/02/14 Unknown Rx Sulfamethoxazole/Trimethoprim 1 each PO BID #14 tablet 07/01/15 Unknown Rx [Bactrim DS TAB] Fluconazole [Diflucan TAB] 150 mg PO ONCE #1 tablet 07/10/15 Unknown Rx predniSONE [Deltasone] 20 mg PO QDAY #3 tab 07/10/15 Unknown Rx Loratadine [Claritin] 10 mg PO DAILY #30 tablet 07/17/15 Unknown Rx Prednisone [predniSONE 10 mg 10 mg PO .TAPER #1 tab.ds.pk 07/17/15 Unknown Rx (6-Day Pack, 21 Tabs)] hydrOXYzine HCL [Atarax] 25 mg PO Q6HR PRN #30 tablet 07/17/15 Unknown Rx Ciprofloxacin HCl [Ciprofloxacin 500 mg PO Q12H #6 tab 03/03/17 Unknown Rx TAB] Naproxen [Naprosyn] 500 mg PO BID #30 tablet 03/03/17 Unknown Rx Capsaicin 42.5 gm TP BID PRN #1 tube 03/06/17 Unknown Rx Cyclobenzaprine [Flexeril 10 MG 10 mg PO QHS PRN #24 tablet 04/15/17 Unknown Rx TAB] Ibuprofen [Motrin 800 MG tab] 800 mg PO Q8H PRN #30 tablet 04/15/17 Unknown Rx Ciprofloxacin HCl [Cipro] 500 mg PO BID #14 tablet 03/06/18 Unknown Rx Dicyclomine [Bentyl] 10 mg PO QID #15 capsule 03/06/18 Unknown Rx Docusate Sodium [Colace] 100 mg PO BID #30 capsule 03/06/18 Unknown Rx Lisinopril/Hydrochlorothiazide 1 tab PO QDAY #30 tab 03/06/18 Unknown Rx [Zestoretic 20-12.5 mg] metroNIDAZOLE [Flagyl] 500 mg PO Q12HR #14 tab 03/06/18 Unknown Rx Famotidine [Pepcid] 20 mg PO BID #20 tablet 03/13/18 Unknown Rx Ondansetron [Zofran Odt] 4 mg PO Q8H PRN #10 tab.rapdis 03/13/18 Unknown Rx ED Review of Systems ROS: Stated complaint: N/V/ABD PAIN Other details as noted in HPI Comment: All other systems reviewed and negative Constitutional: denies: chills, fever Eyes: denies: eye pain, eye discharge, vision change ENT: denies: ear pain, throat pain Respiratory: denies: cough, shortness of breath, wheezing Cardiovascular: denies: chest pain, palpitations Gastrointestinal: abdominal pain, nausea, diarrhea. denies: vomiting Genitourinary: denies: urgency, dysuria, discharge Musculoskeletal: denies: back pain, joint swelling, arthralgia Skin: denies: rash, lesions Neurological: denies: headache, weakness, paresthesias Physical Exam - Physical Exam Vital Signs: Vital Signs 03/12/18 17:10 Temperature 98.1 F Pulse Rate 107 H Respiratory 18 Rate Blood Pressure 145/88 O2 Sat by Pulse 100 Oximetry Physical Exam: GENERAL: The patient is well-developed well-nourished. HENT: Normocephalic. Atraumatic. Patient has moist mucous membranes. EYES: Extraocular motions are intact. Pupils equal reactive to light bilaterally. NECK: Supple. Trachea is midline. CHEST/LUNGS: Clear to auscultation. There is no respiratory distress noted. HEART/CARDIOVASCULAR: Regular. There is no tachycardia. There is no murmur. ABDOMEN: Abdomen is soft. There is some epigastric tenderness to palpation. No guarding. Patient has normal bowel sounds. There is no abdominal distention. SKIN: Skin is warm and dry. NEURO: The patient is awake, alert, and oriented. The patient is cooperative. The patient has no focal neurologic deficits. The patient has normal speech. MUSCULOSKELETAL: There is no tenderness or deformity. There is no limitation range of motion. There is no evidence of acute injury. ED Course Vital Signs 03/12/18 17:10 Temperature 98.1 F Pulse Rate 107 H Respiratory 18 Rate Blood Pressure 145/88 O2 Sat by Pulse 100 Oximetry ED Medical Decision Making - Lab Data Result diagrams: 03/12/18 17:51 03/12/18 17:51 - Radiology Data Radiology results: report reviewed PROCEDURE: CT ABDOMEN PELVIS W CON TECHNIQUE: Computerized axial tomography of the abdomen and pelvis was performed after the IV injection of iodinated nonionic contrast. HISTORY: Abd pain COMPARISON: No prior studies are available for comparison. FINDINGS: Liver, spleen, pancreas and adrenal glands are within normal limits. Bilateral kidneys demonstrate uniform enhancement without hydronephrosis. Urinary bladder is partially filled with normal outlines. Aorta is of normal caliber. There is no free fluid or free air. Status post cholecystectomy. Small bowel loops are within normal limits. Appendix is normal. 3.1 x 4.2 centimeters cystic lesion is noted in the left adnexal region. An in homogeneously enhancing mass lesion is noted involving the posterior fundus measuring 5.6 centimeters in diameter most likely representing a fibroid. Vertebral height is normal. IMPRESSION: 5.6 centimeter mass lesion involving uterus most likely represents fibroid. Ultrasound evaluation is recommended. 3.1 x 4.2 centimeters cystic lesion in the left adnexal region most likely represents a left ovarian cyst. Ultrasound evaluation is recommended. Transcribed By: [facility] [place] Dictated By: VICKI PLUMMER Electronically Authenticated By: VICKI PLUMMER Signed Date/Time: 03/12/18 0744 - Medical Decision Making Patient presents with some continued upper abdominal burning discomfort that associated with some nausea without vomiting and occasionally some diarrhea. She is already had a course of Flagyl and Cipro and has used Bentyl and Colace. Her labs today are mostly unremarkable including no leukocytosis and normal belly labs. Patient last time had an x-ray and due to the prolonged nature of her symptoms we obtained a CT scan of the abdomen and pelvis with IV contrast. This result showed a uterine fibroid and a left ovarian cyst. I do not believe that these are the sources of the patient's upper abdominal discomfort and the patient says that she is aware of having these findings. She was given some nausea medication and a GI cocktail as well as some IV fluid resuscitation. Upon reevaluation she says she is feeling improved. Vital signs stable throughout her ED course. Patient will be placed on Pepcid and given a referral for gastroenterology. She is also been encouraged to follow up with her PCP and PRODUCT DEVELOPMENT TECHNICIAN. - Differential Diagnosis gastritis, GERD, pancreatitis, colitis Critical Care Time: No Critical care attestation.: If time is entered above; I have spent that time in minutes in the direct care of this critically ill patient, excluding procedure time. ED Disposition Clinical Impression: Upper abdominal pain Gastritis Qualifiers: Gastritis type: unspecified gastritis Chronicity: unspecified Gastritis bleeding: without bleeding Qualified Code(s): K29.70 - Gastritis, unspecified, without bleeding GERD (gastroesophageal reflux disease) Qualifiers: Esophagitis presence: esophagitis presence not specified Qualified Code(s): K21.9 - Gastro-esophageal reflux disease without esophagitis Fibroid uterus Qualifiers: Uterine leiomyoma location: unspecified location Qualified Code(s): D25.9 - Leiomyoma of uterus, unspecified Ovarian cyst Qualifiers: Laterality: left Qualified Code(s): N83.202 - Unspecified ovarian cyst, left side Disposition: TO HOME OR SELFCARE Is pt being admited?: No Condition: Stable Instructions: Gastroesophageal Reflux Disease (ED), Abdominal Pain (ED) Additional Instructions: Please follow-up with your primary care physician in the next few days. I'll give you a referral for a local special library librarian, Dr. Catalan, and follow-up regarding or abdominal pain and suspected GERD. Try and stay away from foods such drinks that are caffeinated, tomato-based or acidic, alcohol. Return to the emergency Department with any worsening of her symptoms or any acute distress. Prescriptions: Famotidine [Pepcid] 20 mg PO BID #20 tablet Ondansetron [Zofran Odt] 4 mg PO Q8H PRN #10 tab.rapdis PRN Reason: Nausea Referrals: JESSIKA LEE MD [Primary Care Provider] - 3-5 Days DERECK CATALAN MD [Staff Physician] - 3-5 Days Time of Disposition: 00:07
--- NOTE | 2018-03-12 22:43 | Cat Scan Report ---
FINAL REPORT PROCEDURE: CT ABDOMEN PELVIS W CON TECHNIQUE: Computerized axial tomography of the abdomen and pelvis was performed after the IV injection of iodinated nonionic contrast. HISTORY: Abd pain COMPARISON: No prior studies are available for comparison. FINDINGS: Liver, spleen, pancreas and adrenal glands are within normal limits. Bilateral kidneys demonstrate uniform enhancement without hydronephrosis. Urinary bladder is partially filled with normal outlines. Aorta is of normal caliber. There is no free fluid or free air. Status post cholecystectomy. Small bowel loops are within normal limits. Appendix is normal. 3.1 x 4.2 centimeters cystic lesion is noted in the left adnexal region. An in homogeneously enhancing mass lesion is noted involving the posterior fundus measuring 5.6 centimeters in diameter most likely representing a fibroid. Vertebral height is normal. IMPRESSION: 5.6 centimeter mass lesion involving uterus most likely represents fibroid. Ultrasound evaluation is recommended. 3.1 x 4.2 centimeters cystic lesion in the left adnexal region most likely represents a left ovarian cyst. Ultrasound evaluation is recommended.
[2018-03-12] MEDS ORDERED: ALUM-MAG HYDROX-SIMETH 200-200-20MG/5ML ONE (22:55)
[2018-03-12] MEDS ORDERED: LIDOCAINE VISCOUS 2% ONE (22:55)
[2018-03-12] MEDS ORDERED: ZOFRAN ONE (22:56)
[2018-03-13 01:14] VITALS: BP 118/77
== END 2018-03-13 01:15 | disposition home or self-care (01) ==
LOC: ED 17:08
DX: K29.70 Gastritis, unspecified, without bleeding (principal); K21.9 Gastro-esophageal reflux disease without esophagitis; D25.9 Leiomyoma of uterus, unspecified; N83.202 Unspecified ovarian cyst, left side; I10 Essential (primary) hypertension; F17.200 Nicotine dependence, unspecified, uncomplicated
CPT/HCPCS: 36415; 74177; 80053; 84703; 85025; 96361; 96374; 99284; J2405; J7030; Q9967

== ENCOUNTER 2019-08-31 10:21 | Emergency (ER) | payer MEDICAID | END 2019-08-31 12:14 | disposition home or self-care (01) | LOC: ED 10:21 | CPT/HCPCS: 99281 ==

== ENCOUNTER 2020-05-10 21:42 | Emergency (ER) | payer MEDICAID, OTHER ==
[2020-05-10 22:02] VITALS: BP 183/74
[2020-05-11] MEDS ORDERED: LIDOCAINE (1%) 10 MG/1 ML VIAL 20 ML MDV INFILTRATI ONE (01:02)
[2020-05-11] MEDS ORDERED: ONDANSETRON 4 MG ODT TAB PO ONE (01:02)
[2020-05-11] MEDS ORDERED: CLINDAMYCIN 300 MG CAP PO ONE (01:02)
[2020-05-11] MEDS ORDERED: HYDROcodone/ACETAMINOPHEN 7.5-325MG TAB PO ONE (01:02)
[2020-05-11] MEDS ORDERED: IBUPROFEN 600 MG TAB PO ONE (01:02)
--- NOTE | 2020-05-11 04:06 | Emergency Department Report ---
ED General Adult HPI - General Chief complaint: Skin/Abscess/Foreign Body Stated complaint: PAINFUL ABSCESS UNDER RT BREAST Source: patient Mode of arrival: Ambulatory Limitations: No Limitations - History of Present Illness Initial comments: Patient is a 40-year-old -[place] female with a history of morbid obesity and hypertension who presents to the ED with complaint of acute onset painful swollen erythematous maculopapular rash on anterior right chest wall, under her right breast for the last 1 week, and which got worse in the last 2 days. Patient states that she tried to squeeze some fluid out of the rash and it got worse afterwards. Patient states that in the last 12 hours she has not been able to function because of worsening pain which she describes as sharp and burning. Patient states that she had similar rash in the same spot about 2 months ago and took oral antibiotics but it appeared it healed but subsequently it came back. Patient denies fever, chills, nausea, vomiting, dizziness, syncope, sore throat, traumatic injury, back pain, abdominal pain, cough or numbness and tingling or weakness of upper extremities bilaterally. MD Complaint: right chest wall swollen painful rash -: Sudden, week(s) (1) Location: chest (right chest wall) Radiation: non-radiation Severity scale (0 -10): 7 Quality: aching, sharp Consistency: constant Improves with: none Worsens with: movement Associated Symptoms: denies other symptoms, chest pain (right chest wall due to erythematous rash). denies: confusion, cough, diaphoresis, fever/chills, loss of appetite, malaise, nausea/vomiting, seizure, shortness of breath, syncope, weakness Treatments Prior to Arrival: none - Related Data Home Medications Medication Instructions Recorded Confirmed Last Taken hydroCHLOROthiazide 25 mg PO QDAY 09/20/13 09/20/13 09/20/13 10:00 [Hydrochlorothiazide] medroxyPROGESTERone ACETATE(NF 2.5 mg PO QDAY 09/20/13 09/20/13 09/17/13 08:00 [Provera] Previous Rx's Medication Instructions Recorded Last Taken Type Lisinopril/Hydrochlorothiazide 1 each PO QDAY #30 tablet 09/20/13 Unknown Rx [Zestoretic 20-25 mg] traMADoL [Ultram 50 MG tab] 50 mg PO Q6H PRN #12 tablet 09/20/13 Unknown Rx Famotidine [Pepcid] 20 mg PO BID #60 tablet 09/23/13 Unknown Rx Hyoscyamine Subl [Levsin Sl] 0.125 mg PO Q6HR PRN #20 tablet 09/23/13 Unknown Rx Promethazine [Phenergan] 25 mg PO Q6H PRN #20 tablet 09/23/13 Unknown Rx Sulfamethoxazole/Trimethoprim 1 each PO BID #14 tablet 09/23/13 Unknown Rx [Bactrim Ds] HYDROcodone/APAP 10-325 [[place] 1 each PO Q6HR PRN #20 tablet 04/02/14 Unknown Rx 10-325 mg TAB] methOCARBAMOL [Robaxin] 750 mg PO Q8H PRN #21 tablet 04/02/14 Unknown Rx Sulfamethoxazole/Trimethoprim 1 each PO BID #14 tablet 07/01/15 Unknown Rx [Bactrim DS TAB] Fluconazole (Nf) [Diflucan TAB] 150 mg PO ONCE #1 tablet 07/10/15 Unknown Rx predniSONE [Deltasone] 20 mg PO QDAY #3 tab 07/10/15 Unknown Rx Loratadine (Nf) [Claritin] 10 mg PO DAILY #30 tablet 07/17/15 Unknown Rx Prednisone [predniSONE 10 mg 10 mg PO .TAPER #1 tab.ds.pk 07/17/15 Unknown Rx (6-Day Pack, 21 Tabs)] hydrOXYzine HCL [Atarax] 25 mg PO Q6HR PRN #30 tablet 07/17/15 Unknown Rx Ciprofloxacin HCl [Ciprofloxacin 500 mg PO Q12H #6 tab 03/03/17 Unknown Rx TAB] Naproxen [Naprosyn] 500 mg PO BID #30 tablet 03/03/17 Unknown Rx Capsaicin 42.5 gm TP BID PRN #1 tube 03/06/17 Unknown Rx Cyclobenzaprine [Flexeril 10 MG 10 mg PO QHS PRN #24 tablet 04/15/17 Unknown Rx TAB] Ibuprofen [Motrin 800 MG tab] 800 mg PO Q8H PRN #30 tablet 04/15/17 Unknown Rx Ciprofloxacin HCl [Cipro] 500 mg PO BID #14 tablet 03/06/18 Unknown Rx Dicyclomine [Bentyl] 10 mg PO QID #15 capsule 03/06/18 Unknown Rx Docusate Sodium [Colace] 100 mg PO BID #30 capsule 03/06/18 Unknown Rx Lisinopril/Hydrochlorothiazide 1 tab PO QDAY #30 tab 03/06/18 Unknown Rx [Zestoretic 20-12.5 mg] metroNIDAZOLE [Flagyl] 500 mg PO Q12HR #14 tab 03/06/18 Unknown Rx Famotidine [Pepcid] 20 mg PO BID #20 tablet 03/13/18 Unknown Rx Ondansetron [Zofran Odt] 4 mg PO Q8H PRN #10 tab.rapdis 03/13/18 Unknown Rx Fluconazole (Nf) [Diflucan TAB] 150 mg PO ONCE #1 tablet 08/31/19 Unknown Rx hydroCHLOROthiazide [HCTZ] 25 mg PO QDAY 90 Days #90 tablet 08/31/19 Unknown Rx lisinopriL [Zestril TAB] 20 mg PO QDAY 90 Days #90 tablet 08/31/19 Unknown Rx metroNIDAZOLE [Flagyl TAB] 500 mg PO Q12HR 7 Days #14 tab 08/31/19 Unknown Rx Acetaminophen/Codeine [Tylenol 1 tab PO Q6H PRN #12 tab 05/11/20 Unknown Rx /Codeine # 3 tab] Clindamycin [Clindamycin CAP] 300 mg PO Q8HR #60 capsule 05/11/20 Unknown Rx Ibuprofen [Motrin] 800 mg PO Q8HR PRN #30 tablet 05/11/20 Unknown Rx Ondansetron [Zofran Odt] 4 mg PO Q6HR PRN #20 tab.rapdis 05/11/20 Unknown Rx cephALEXin [Keflex] 500 mg PO Q8HR #30 cap 05/11/20 Unknown Rx Allergies Allergy/AdvReac Type Severity Reaction Status Date / Time sulfamethoxazole Allergy Rash Verified 08/31/19 10:22 [From Bactrim] trimethoprim [From Bactrim] Allergy Rash Verified 08/31/19 10:22 ED Review of Systems ROS: Stated complaint: PAINFUL ABSCESS UNDER RT BREAST Other details as noted in HPI Constitutional: denies: chills, fever Eyes: denies: eye pain, eye discharge, vision change ENT: denies: ear pain, throat pain Respiratory: denies: cough, shortness of breath, wheezing Cardiovascular: chest pain (Anterior right chest wall pain due to erythematous maculopapular rash). denies: palpitations Endocrine: no symptoms reported Gastrointestinal: denies: abdominal pain, nausea, diarrhea Genitourinary: denies: urgency, dysuria, discharge Musculoskeletal: denies: back pain, joint swelling, arthralgia Skin: rash (Erythematous maculopapular rash on anterior right chest wall with pain). denies: lesions Neurological: denies: headache, weakness, paresthesias Psychiatric: denies: anxiety, depression Hematological/Lymphatic: denies: easy bleeding, easy bruising ED Past Medical Hx - Past Medical History Previous Medical History?: Yes Hx Hypertension: Yes Additional medical history: PCOS, uterine fibroids - Surgical History Past Surgical History?: Yes Hx Cholecystectomy: Yes Additional Surgical History: tonsillectomy, tubal ligation, hysterectomy 2017 - Social History Smoking Status: Never Smoker Substance Use Type: None - Medications Home Medications: Home Medications Medication Instructions Recorded Confirmed Last Taken Type Lisinopril/Hydrochlorothiazide 1 each PO QDAY #30 tablet 09/20/13 Unknown Rx [Zestoretic 20-25 mg] hydroCHLOROthiazide 25 mg PO QDAY 09/20/13 09/20/13 09/20/13 10:00 History [Hydrochlorothiazide] medroxyPROGESTERone ACETATE(NF 2.5 mg PO QDAY 09/20/13 09/20/13 09/17/13 08:00 History [Provera] traMADoL [Ultram 50 MG tab] 50 mg PO Q6H PRN #12 tablet 09/20/13 Unknown Rx Famotidine [Pepcid] 20 mg PO BID #60 tablet 09/23/13 Unknown Rx Hyoscyamine Subl [Levsin Sl] 0.125 mg PO Q6HR PRN #20 tablet 09/23/13 Unknown Rx Promethazine [Phenergan] 25 mg PO Q6H PRN #20 tablet 09/23/13 Unknown Rx Sulfamethoxazole/Trimethoprim 1 each PO BID #14 tablet 09/23/13 Unknown Rx [Bactrim Ds] HYDROcodone/APAP 10-325 [[place] 1 each PO Q6HR PRN #20 tablet 04/02/14 Unknown Rx 10-325 mg TAB] methOCARBAMOL [Robaxin] 750 mg PO Q8H PRN #21 tablet 04/02/14 Unknown Rx Sulfamethoxazole/Trimethoprim 1 each PO BID #14 tablet 07/01/15 Unknown Rx [Bactrim DS TAB] Fluconazole (Nf) [Diflucan TAB] 150 mg PO ONCE #1 tablet 07/10/15 Unknown Rx predniSONE [Deltasone] 20 mg PO QDAY #3 tab 07/10/15 Unknown Rx Loratadine (Nf) [Claritin] 10 mg PO DAILY #30 tablet 07/17/15 Unknown Rx Prednisone [predniSONE 10 mg 10 mg PO .TAPER #1 tab.ds.pk 07/17/15 Unknown Rx (6-Day Pack, 21 Tabs)] hydrOXYzine HCL [Atarax] 25 mg PO Q6HR PRN #30 tablet 07/17/15 Unknown Rx Ciprofloxacin HCl [Ciprofloxacin 500 mg PO Q12H #6 tab 03/03/17 Unknown Rx TAB] Naproxen [Naprosyn] 500 mg PO BID #30 tablet 03/03/17 Unknown Rx Capsaicin 42.5 gm TP BID PRN #1 tube 03/06/17 Unknown Rx Cyclobenzaprine [Flexeril 10 MG 10 mg PO QHS PRN #24 tablet 04/15/17 Unknown Rx TAB] Ibuprofen [Motrin 800 MG tab] 800 mg PO Q8H PRN #30 tablet 04/15/17 Unknown Rx Ciprofloxacin HCl [Cipro] 500 mg PO BID #14 tablet 03/06/18 Unknown Rx Dicyclomine [Bentyl] 10 mg PO QID #15 capsule 03/06/18 Unknown Rx Docusate Sodium [Colace] 100 mg PO BID #30 capsule 03/06/18 Unknown Rx Lisinopril/Hydrochlorothiazide 1 tab PO QDAY #30 tab 03/06/18 Unknown Rx [Zestoretic 20-12.5 mg] metroNIDAZOLE [Flagyl] 500 mg PO Q12HR #14 tab 03/06/18 Unknown Rx Famotidine [Pepcid] 20 mg PO BID #20 tablet 03/13/18 Unknown Rx Ondansetron [Zofran Odt] 4 mg PO Q8H PRN #10 tab.rapdis 03/13/18 Unknown Rx Fluconazole (Nf) [Diflucan TAB] 150 mg PO ONCE #1 tablet 08/31/19 Unknown Rx hydroCHLOROthiazide [HCTZ] 25 mg PO QDAY 90 Days #90 tablet 08/31/19 Unknown Rx lisinopriL [Zestril TAB] 20 mg PO QDAY 90 Days #90 tablet 08/31/19 Unknown Rx metroNIDAZOLE [Flagyl TAB] 500 mg PO Q12HR 7 Days #14 tab 08/31/19 Unknown Rx Acetaminophen/Codeine [Tylenol 1 tab PO Q6H PRN #12 tab 05/11/20 Unknown Rx /Codeine # 3 tab] Clindamycin [Clindamycin CAP] 300 mg PO Q8HR #60 capsule 05/11/20 Unknown Rx Ibuprofen [Motrin] 800 mg PO Q8HR PRN #30 tablet 05/11/20 Unknown Rx Ondansetron [Zofran Odt] 4 mg PO Q6HR PRN #20 tab.rapdis 05/11/20 Unknown Rx cephALEXin [Keflex] 500 mg PO Q8HR #30 cap 05/11/20 Unknown Rx ED Physical Exam - General Limitations: No Limitations General appearance: alert, in no apparent distress - Head Head exam: Present: atraumatic, normocephalic, normal inspection - Eye Eye exam: Present: normal appearance, PERRL, EOMI Pupils: Present: normal accommodation - ENT ENT exam: Present: normal exam, normal orophraynx, mucous membranes moist, TM's normal bilaterally, normal external ear exam - Neck Neck exam: Present: normal inspection, full ROM - Respiratory Respiratory exam: Present: normal lung sounds bilaterally, chest wall tenderness (Right-sided anterior chest wall tenderness due to fluctuant erythematous maculopapular rash). Absent: respiratory distress, wheezes, rales, rhonchi, accessory muscle use, decreased breath sounds, prolonged expiratory - Cardiovascular Cardiovascular Exam: Present: normal rhythm, tachycardia, normal heart sounds. Absent: systolic murmur, diastolic murmur, rubs, gallop - GI/Abdominal GI/Abdominal exam: Present: soft, normal bowel sounds. Absent: tenderness, guarding, rebound, hyperactive bowel sounds, hypoactive bowel sounds, organomegaly - Extremities Exam Extremities exam: Present: normal inspection, full ROM, normal capillary refill - Back Exam Back exam: Present: normal inspection, full ROM. Absent: tenderness, CVA tenderness (R), CVA tenderness (L), muscle spasm, paraspinal tenderness, ve rtebral tenderness, rash noted - Neurological Exam Neurological exam: Present: alert, oriented X3, CN II-XII intact, normal gait, reflexes normal - Psychiatric Psychiatric exam: Present: normal affect, normal mood - Skin Skin exam: Present: warm, dry, intact, normal color, rash (Erythematous maculopapular fluctuant rash with severe tenderness on anterior right chest wall), erythema ED Course Vital Signs 05/10/20 21:57 Temperature 98.3 F Pulse Rate 129 H Respiratory 18 Rate Blood Pressure 183/74 - I & D Right Chest Type of Procedure: Simple Site: anterior right chest wall Blade Size: 11 I & D Procedure: betadine prep, sterile drapes applied, sterile dressing applied Progress: Patient tolerated the procedure well. The wound was incised and drained per protocol and debrided extensively, and a packing placed in the wound. The wound was then dressed appropriately and the patient was discharged home on pain medication and antibiotics. Patient was advised to return to the ED in 2 days for wound recheck and packing removal, otherwise follow-up with her primary care physician in 5 to 7 days for reevaluation. ED Medical Decision Making - Medical Decision Making This is a 40-year-old -[place] female with a history of morbid obesity and hypertension who presents to the ED with complaint of acute onset painful swollen erythematous maculopapular rash on anterior right chest wall, under her right breast for the last 1 week, and which got worse in the last 2 days. Patient states that she tried to squeeze some fluid out of the rash and it got worse afterwards. Patient states that in the last 12 hours she has not been able to function because of worsening pain which she describes as sharp and burning. Patient states that she had similar rash in the same spot about 2 mon ths ago and took oral antibiotics but it appeared it healed but subsequently it came back. In the ED, patient is alert and oriented x3 and is not in distress but appears to be in significant pain and is afebrile but tachycardic. Patient was treated for pain in the ED and also given initial oral antibiotics. The anterior right chest wall swollen fluctuant rash was cleaned thoroughly and incised and drained per protocol. Patient tolerated the procedure well. The wound was then dressed appropriately and the patient was discharged home on pain medications and oral antibiotics. Patient was advised to return to the ED in 2 days for wound recheck and packing removal, otherwise return to the ED immediately if symptoms get worse. Patient was also advised to follow-up with her primary care physician in 7 to 10 days for reevaluation. - Differential Diagnosis Cellulitis; abscess; folliculitis; Critical care attestation.: If time is entered above; I have spent that time in minutes in the direct care of this critically ill patient, excluding procedure time. ED Disposition Clinical Impression: Abscess or cellulitis of chest wall Disposition: TO HOME OR SELFCARE Is pt being admited?: No Does the pt Need Aspirin: No Condition: Stable Instructions: Cellulitis (ED), Abscess (ED) Additional Instructions: Take medication with food, drink plenty of fluids and follow-up with your primary care physician in 5 to 7 days for reevaluation. Return to the ED in 2 days for wound recheck or immediately if symptoms get worse. Prescriptions: Clindamycin [Clindamycin CAP] 300 mg PO Q8HR #60 capsule cephALEXin [Keflex] 500 mg PO Q8HR #30 cap Ibuprofen [Motrin] 800 mg PO Q8HR PRN #30 tablet PRN Reason: Pain , Severe (7-10) Acetaminophen/Codeine [Tylenol /Codeine # 3 tab] 1 tab PO Q6H PRN #12 tab PRN Reason: Pain , Severe (7-10) Ondansetron [Zofran Odt] 4 mg PO Q6HR PRN #20 tab.rapdis PRN Reason: Nausea Referrals: JESSIKA LEE MD [Primary Care Provider] - 3-5 Days Forms: Work/School Release Form(ED) Time of Disposition: 04:04 Print Language: HEBREW
== END 2020-05-11 04:55 | disposition home or self-care (01) ==
LOC: ED 21:42
DX: J86.9 Pyothorax without fistula (principal); L03.313 Cellulitis of chest wall; I10 Essential (primary) hypertension; E28.2 Polycystic ovarian syndrome; Z90.49 Acquired absence of other specified parts of digestive tract; Z98.51 Tubal ligation status; Z79.899 Other long term (current) drug therapy; Z90.710 Acquired absence of both cervix and uterus; Z90.89 Acquired absence of other organs
CPT/HCPCS: 99282; Q0162